=== PATIENT | male | born 1975 | race African-American/Black ===

== ENCOUNTER 2018-09-28 17:10 | Inpatient (IN) | payer OTHER ==
[~2018-09-28] VITALS: Ht 167.6 cm; Wt 172.4 kg
[2018-09-28] MEDS ORDERED: NITROGLYCERIN 0.4MG TABLET SL SL ONE (18:30)
[2018-09-28] MEDS ORDERED: ASPIRIN 325MG EC TABLET PO ONE (18:30)
[2018-09-28] MEDS ORDERED: FUROSEMIDE 40MG TABLET PO ONE (18:30)
[2018-09-28 18:31] LABS: BASOPHILS % 0.6 % (0.0-2.0); HEMATOCRIT. 48.3 % (42.0-52.0); HEMOGLOBIN. 15.8 g/dL (14.0-18.0); LYMPHOCYTES % 10.7 % (20.0-50.0); MEAN CORPUSCULAR HEMOGLOBIN 26.2 pg (28.0-32.0); MEAN CORPUSCULAR VOLUME 79.9 fL (80.0-94.0); MEAN PLATELET VOLUME 8.9 fl (7.4-10.4); MONOCYTES % 4.7 % (2.0-8.0); PLATELET 176 x1000/uL (130-400); RED BLOOD CELL COUNT 6.04 mill/uL (4.7-6.1); RED CELL DISTRIBUTION WIDTH 16.5 % (11.6-14.6)
[2018-09-28 18:32] LABS: CHLORIDE 104 mEq/L (98-107)
[2018-09-28 18:40] LABS: CLARITY URINE CLEAR (CLEAR); COLOR URINE YELLOW (YELLOW); KETONES URINE NEGATIVE (NEGATIVE); LEUKOCYTE ESTERASE URINE NEGATIVE (NEGATIVE); NITRITE URINE NEGATIVE (NEGATIVE); OCCULT BLOOD URINE NEGATIVE (NEGATIVE); PH URINE 7.5 (4.5-8.0); PROTEIN URINE 1+ (NEGATIVE); SPECIFIC GRAVITY URINE 1.012 (1.005-1.030); UROBILINOGEN URINE 0.2 E.U./dL (0.2-1.0)
[2018-09-28 18:57] LABS: *BENZODIAZEPINES SCREEN URINE NEGATIVE (NEGATIVE); *COCAINE SCREEN URINE NEGATIVE (NEGATIVE)
[2018-09-28 18:59] LABS: *AMPHETAMINES SCREEN URINE NEGATIVE (NEGATIVE); *BARBITURATES SCREEN URINE NEGATIVE (NEGATIVE); CANNABINOID URINE SCREEN NEGATIVE (NEGATIVE); METHADONE URINE SCREEN NEGATIVE (NEGATIVE); OPIATES URINE SCREEN NEGATIVE (NEGATIVE); PHENCYCLIDINE URINE SCREEN NEGATIVE (NEGATIVE)
[2018-09-28] MEDS ORDERED: ENOXAPARIN 120MG/0.8ML SYR SUBCUT ONE (19:45)
[2018-09-28] MEDS ORDERED: HYDRALAZINE 20MG/ML VIAL IV ONE (20:00)
[2018-09-28] MEDS ORDERED: ENOXAPARIN 120MG/0.8ML SYR SUBCUT NR (20:15)
[2018-09-28] MEDS ORDERED: ENOXAPARIN 60MG/0.6ML SYR SUBCUT NR (20:15)
[2018-09-28] MEDS ORDERED: ENOXAPARIN 150MG/ML SYR SUBCUT NR (20:15)
[2018-09-28] MEDS ORDERED: LABETALOL 5MG/ML SYR 20 MG/4 ML SYRINGE IV ONE (21:45)
[2018-09-28] MEDS ORDERED: NITROGLYCERIN 50MG PREMIX 250 ML IV ONE (22:30)
[2018-09-28] MEDS ORDERED: ONDANSETRON HCL 4MG/2ML INJ IV PRN (22:45)
[2018-09-28] MEDS ORDERED: DOCUSATE SODIUM 100MG CAPSULE PO PRN (22:45)
[2018-09-28] MEDS ORDERED: ACETAMINOPHEN 325MG TABLET PO PRN (22:45)
[2018-09-28] MEDS ORDERED: MAGNESIUM/ALUMINUM HYDROXIDE/SIMETHICONE 30ML UDC PO PRN (22:45)
[2018-09-28 23:47] VITALS: BP 172/104
[2018-09-29] VITALS (87 sets, daily range): BP systolic 131–232; BP diastolic 28–126
[2018-09-29] MEDS: HYDROCODONE/ACETAMINOPHEN 5/325MG TABLET PO PRN ×3 (00:15→23:23)
[2018-09-29] MEDS: CLONIDINE 0.1MG TABLET PO PRN ×2 (01:51→13:42)
[2018-09-29 02:00] LABS: CHLORIDE 106 mEq/L (98-107)
[2018-09-29] MEDS ORDERED: CEFTRIAXONE 1 G PREMIX 50 ML IV SCH (02:00)
[2018-09-29] MEDS ORDERED: AZITHROMYCIN 500 MG in DEXT 5% WATER 250 ML IV SCH (03:00)
[2018-09-29 06:16] LABS: HEMATOCRIT. 38.4 % (42.0-52.0); HEMOGLOBIN. 12.9 g/dL (14.0-18.0); MEAN CORPUSCULAR HEMOGLOBIN 26.6 pg (28.0-32.0); MEAN CORPUSCULAR VOLUME 79.4 fL (80.0-94.0); MEAN PLATELET VOLUME 9.1 fl (7.4-10.4); PLATELET 164 x1000/uL (130-400); RED BLOOD CELL COUNT 4.84 mill/uL (4.7-6.1); RED CELL DISTRIBUTION WIDTH 16.1 % (11.6-14.6)
[2018-09-29 07:08] LABS: CREATINE KINASE MB FRACTION 1.3 ng/mL (0.5-3.6)
[2018-09-29 07:22] LABS: PLATELET ESTIMATE NORMAL
[2018-09-29] MEDS ORDERED: ATEN50TA PO (08:49)
[2018-09-29] MEDS ORDERED: LOSA25TA26 PO (08:49)
[2018-09-29] MEDS ORDERED: ATOR40TA70 PO (08:49)
[2018-09-29] MEDS ORDERED: AMLO10TA80 PO (08:49)
[2018-09-29] MEDS: IPRATROPIUM/ALBUTEROL 0.5-3(2.5)MG/3ML NEB INH PRN ×2 (09:15→13:57)
[2018-09-29] MEDS: FUROSEMIDE 40MG/4ML VIAL IV SCH ×2 (09:26→17:38)
[2018-09-29] MEDS: ASPIRIN 81MG EC TABLET PO SCH (09:26)
[2018-09-29] MEDS: ENOXAPARIN 150MG/ML SYR SUBCUT SCH ×2 (09:27→21:19)
[2018-09-29] MEDS ORDERED: ATENOLOL 50 MG TABLET PO SCH (10:00)
[2018-09-29] MEDS ORDERED: LOSARTAN POTASSIUM 25 MG TABLET PO SCH (10:00)
[2018-09-29] MEDS ORDERED: AMLODIPINE 10MG TABLET PO SCH (10:00)
[2018-09-29] MEDS ORDERED: CARVEDILOL 12.5MG TABLET PO SCH (11:15)
[2018-09-29] MEDS: CARVEDILOL 12.5MG TABLET PO SCH ×2 (11:28→21:19)
[2018-09-29] MEDS: LOSARTAN POTASSIUM 25 MG TABLET PO SCH ×2 (11:29→21:18)
[2018-09-29 12:27] LABS: BG BASE EXCESS 0.8 mmol/L (-2.0-2.0); BG CARBOXYHEMOGLOBIN 1.2 % (0.5-1.5); BG DEOXYHEMOGLOBIN 4.9 % (0.0-5.0); BG FRACTION INSPIRED OXYGEN 28; BG HCO3 ACT 25.2 mmol/L (22.0-26.0); BG METHEMOGLOBIN 0.1 % (0.0-1.5); BG OXYHEMOGLOBIN 93.8 % (94.0-97.0); BG PCO2 39.6 mmHg (35.0-45.0); BG PH 7.421 (7.350-7.450); BG PO2 77.3 mmHg (75.0-100.0); BG SAMPLE SITE RIGHT RADIAL; BG TOTAL HEMOGLOBIN 13.1 g/dL (12.0-18.0); BG VENT MODE NASAL CANNULA
[2018-09-29] MEDS: DILTIAZEM HCL 60MG TABLET PO SCH ×3 (12:27→23:23)
[2018-09-29] MEDS: NITROGLYCERIN 50MG PREMIX 250 ML IV PRN ×2 (12:29→22:31)
[2018-09-29] MEDS: NITROGLYCERIN OINT 1GM/INCH UDPKT TD SCH ×2 (13:42→22:30)
[2018-09-29] MEDS: AZITHROMYCIN 500MG in DEXTROSE 5% WATER 250ML IV SCH (21:06)
[2018-09-29] MEDS: CEFTRIAXONE 1 G PREMIX 50 ML IV SCH (21:08)
[2018-09-29] MEDS: FAMOTIDINE 20MG TABLET PO SCH (21:18)
[2018-09-29] MEDS: ATORVASTATIN CALCIUM 40MG TABLET PO SCH (21:19)
[2018-09-30] VITALS (44 sets, daily range): BP systolic 113–157; BP diastolic 57–93
[2018-09-30 06:08] LABS: BASOPHILS % 0.4 % (0.0-2.0); EOSINOPHILS % 0.5 % (0.0-5.0); HEMATOCRIT. 36.7 % (42.0-52.0); LYMPHOCYTES % 12.9 % (20.0-50.0); MEAN CORPUSCULAR HEMOGLOBIN 26.1 pg (28.0-32.0); MEAN CORPUSCULAR VOLUME 79.7 fL (80.0-94.0); MEAN PLATELET VOLUME 9.1 fl (7.4-10.4); MONOCYTES % 6.1 % (2.0-8.0); NEUTROPHILS % 80.1 % (40.0-76.0); PLATELET 168 x1000/uL (130-400); RED BLOOD CELL COUNT 4.61 mill/uL (4.7-6.1); RED CELL DISTRIBUTION WIDTH 16.3 % (11.6-14.6)
[2018-09-30] MEDS: NITROGLYCERIN OINT 1GM/INCH UDPKT TD SCH (06:13)
[2018-09-30] MEDS: DILTIAZEM HCL 60MG TABLET PO SCH (06:13)
[2018-09-30 06:17] LABS: CHLORIDE 100 mEq/L (98-107)
[2018-09-30 06:30] LABS: PHOSPHORUS 4.1 mg/dL (2.5-4.9)
[2018-09-30 06:33] LABS: CREATINE KINASE 100 IU/L (39-308)
[2018-09-30 06:35] LABS: CREATINE KINASE MB FRACTION < 1.0 ng/mL (0.5-3.6)
[2018-09-30] MEDS: ASPIRIN 81MG EC TABLET PO SCH (08:54)
[2018-09-30] MEDS: FUROSEMIDE 40MG/4ML VIAL IV SCH (08:54)
[2018-09-30] MEDS: CARVEDILOL 12.5MG TABLET PO SCH (08:55)
[2018-09-30] MEDS: ENOXAPARIN 150MG/ML SYR SUBCUT SCH ×2 (08:56→20:33)
[2018-09-30] MEDS ORDERED: LOSARTAN POTASSIUM 50 MG TABLET PO SCH (09:00)
[2018-09-30] MEDS: DILTIAZEM HCL 90MG TABLET PO SCH ×2 (11:57→17:12)
[2018-09-30] MEDS: CARVEDILOL 6.25 MG TABLET PO SCH (20:32)
[2018-09-30] MEDS: CEFTRIAXONE 1 G PREMIX 50 ML IV SCH (20:32)
[2018-09-30] MEDS: ATORVASTATIN CALCIUM 40MG TABLET PO SCH (20:32)
[2018-09-30] MEDS: FAMOTIDINE 20MG TABLET PO SCH (20:32)
[2018-09-30] MEDS: AZITHROMYCIN 500MG in DEXTROSE 5% WATER 250ML IV SCH (21:46)
[2018-10-01] VITALS: BP 118/61
[2018-10-01] MEDS: DILTIAZEM HCL 90MG TABLET PO SCH ×3 (01:05→12:40)
[2018-10-01 04:00] VITALS: BP 166/85
[2018-10-01 06:55] LABS: EOSINOPHILS % 3.2 % (0.0-5.0); HEMOGLOBIN. 12.9 g/dL (14.0-18.0); MEAN CORPUSCULAR HEMOGLOBIN 26.2 pg (28.0-32.0); MEAN CORPUSCULAR VOLUME 79.4 fL (80.0-94.0); MEAN PLATELET VOLUME 8.5 fl (7.4-10.4); NEUTROPHILS % 70.8 % (40.0-76.0); PLATELET 177 x1000/uL (130-400); RED BLOOD CELL COUNT 4.91 mill/uL (4.7-6.1); RED CELL DISTRIBUTION WIDTH 15.9 % (11.6-14.6)
[2018-10-01 08:00] VITALS: BP 139/81
[2018-10-01] MEDS ORDERED: LOSARTAN POTASSIUM 100 MG TABLET PO SCH (08:00)
[2018-10-01 08:22] LABS: PHOSPHORUS 3.5 mg/dL (2.5-4.9)
[2018-10-01] MEDS ORDERED: FUROSEMIDE 40MG TABLET PO SCH (09:00)
[2018-10-01] MEDS: ASPIRIN 81MG EC TABLET PO SCH (09:12)
[2018-10-01] MEDS: CARVEDILOL 6.25 MG TABLET PO SCH (09:13)
[2018-10-01] MEDS: ENOXAPARIN 150MG/ML SYR SUBCUT SCH (09:14)
[2018-10-01] MEDS ORDERED: ASPI-1158 PO (09:58)
[2018-10-01] MEDS ORDERED: FAMO20TA8 PO (09:58)
[2018-10-01] MEDS ORDERED: DILT360C27 MT (09:58)
[2018-10-01] MEDS ORDERED: COR6 PO (09:58)
[2018-10-01] MEDS ORDERED: AZIT500T5 MT (09:58)
[2018-10-01] MEDS ORDERED: LOSA100T3 PO (09:58)
[2018-10-01 12:00] VITALS: BP 116/57
[2018-10-01] MEDS ORDERED: DILTIAZEM HCL 300MG CAPSULE SR 24HR PO SCH (12:45)
[2018-10-01 13:01] VITALS: BP 116/57
[2018-10-01 16:00] VITALS: BP 135/89
== END 2018-10-01 16:16 | disposition home or self-care (01) | DRG 199 ==
LOC: ER 17:10 → EDBEDREQTM 20:12 → EDBEDREQ 20:12 → ENRESERV 21:58 → MICUSO 22:25 → EDBEDREQ 22:28 → EDBEDREQTM 22:28 → EDBEDREQSVC 22:28 → ENRESERV 22:36 → 8WST 09-30 11:05
PROVIDERS: ADMIT Internal Medicine; ATTEND Internal Medicine
DX: I16.1 Hypertensive emergency (principal); J96.91 Respiratory failure, unspecified with hypoxia; J18.9 Pneumonia, unspecified organism; R65.10 Systemic inflammatory response syndrome (SIRS) of non-infectious origin without acute organ dysfunction; I50.30 Unspecified diastolic (congestive) heart failure; N17.9 Acute kidney failure, unspecified; E66.01 Morbid (severe) obesity due to excess calories; N18.3 Chronic kidney disease, stage 3 (moderate); Z68.44 Body mass index [BMI] 60.0-69.9, adult; I13.0 Hypertensive heart and chronic kidney disease with heart failure and stage 1 through stage 4 chronic kidney disease, or unspecified chronic kidney disease; E78.5 Hyperlipidemia, unspecified; Z82.49 Family history of ischemic heart disease and other diseases of the circulatory system; Z91.14 Patient's other noncompliance with medication regimen; Z91.19 Patient's noncompliance with other medical treatment and regimen; Z88.8 Allergy status to other drugs, medicaments and biological substances; Z79.899 Other long term (current) drug therapy
CPT/HCPCS: 36415; 36600; 71045; 76770; 80048; 80061; 80305; 82375; 82550; 82553; 82805; 83036; 83735; 83880; 84100; 84145; 84443; 84484; 93005; 93306; 94640; 94660; 99291; J0360; J0456; J0696; J1650; J1940; J3490; J7050; J7060; J7620